=== PATIENT | female | born 1960 | race Caucasian/White ===

== ENCOUNTER 2023-12-25 09:58 | Day surgery (SDC) | payer MEDICARE ==
--- NOTE | 2023-11-12 13:09 | HP ---
HISTORY AND PHYSICAL HISTORY OF PRESENT ILLNESS: Patient has history of polyps in the past, needs followup screening colonoscopy. No bloody stools. No change in bowel movements. No new pain. Family history unknown since she is adopted. PAST MEDICAL HISTORY: Bipolar, anxiety, hypertension, COPD, history of depression, hypothyroidism, type 2 diabetes, history of glaucoma, and history of cataracts in the past. HOME MEDICATIONS: Demerol, sulfamethoxazole, Stiolto Respimat, pirfenidone, oxcarbazepine, mirtazapine, levothyroxine, levocetirizine, enalapril, and azithromycin. ALLERGIES: Depakote and Tegretol. PAST SURGICAL HISTORY: Colonoscopy and tubal in the past. SOCIAL HISTORY: Smoker. Occasional alcohol use. Occasional marijuana. FAMILY HISTORY: Unknown. REVIEW OF SYSTEMS: Twelve systems reviewed. No chest pain or palpitations. Other systems negative or noncontributory as above and per preadmission questionnaire. PHYSICAL EXAMINATION: VITAL SIGNS: Height 5 feet 4 inches. BMI 25.75. GENERAL: No acute distress. HEENT: Sclerae nonicteric. NECK: No JVD. CHEST: Patient does have COPD but equal excursion. Breath sounds symmetric. CARDIOVASCULAR: Regular rate and rhythm. ABDOMEN: Soft. EXTREMITIES: No cyanosis or edema. NEUROLOGIC: Alert and oriented, moving all extremities symmetrically. PSYCHIATRIC: Appropriate mood and affect. SKIN: Dry. RECTAL: Deferred until diagnostic exam. IMPRESSION: History of polyps. Needs followup screening colonoscopy, of which she is a candidate. Shown the risk sheet and explained the procedure in detail including but not limited to bleeding or infection; risk of bowel injury or perforation; risk of missed or nondiagnosis; risk of incomplete exam possibly requiring barium enema, other studies or procedures or referral; risk of anesthesia or sedation; risk of bowel prep but not limited to. Consent obtained. We will proceed with outpatient and followup screening colonoscopy under MAC anesthesia. Patient will need a longer, 3-day prep, as she has chronic constipation. Otherwise, continue medications and medical management for her anxiety, depression, bipolar, hypertension, COPD, diabetes, thyroid disease, and arthritis.
[2023-12-25] MEDS ORDERED: Lactated Ringers 1,000 ML IV ONE (10:17)
[2023-12-25] MEDS: Lactated Ringers 1,000 ML IV SCH (10:20)
--- NOTE | 2023-12-25 10:55 | HP ---
THIS REPORT WAS AMENDED ON 12/26/2023. PROCEDURE DATE: 12/25/2023 HISTORY OF PRESENT ILLNESS: History of polyps in the past. Need for follow-up screening colonoscopy. No bloody stools. No change in bowel habits. PAST MEDICAL HISTORY: Has had bipolar. She has had anxiety, hypertension, chronic obstructive pulmonary disease, arthritis, depression, hypothyroidism, type 2 diabetes. History of glaucoma. History of cataracts in the past. CURRENT MEDICATIONS: Timolol eye drops, sulfamethoxazole-trimethoprim in the past, Stiolto Respimat inhaler, perphenazine, oxcarbazepine, mirtazapine, levothyroxine for some hypothyroidism, levocetirizine, Enalapril, azithromycin in the past. ALLERGIES: DEPAKOTE AND TEGRETOL. PAST SURGICAL HISTORY: She had colonoscopy in the past. FAMILY HISTORY: Unknown as she was adopted. SOCIAL HISTORY: Smoker, does smoke some marijuana at times, occasional alcohol use, denies abuse. REVIEW OF SYSTEMS: 12 systems reviewed. No chest pain or palpitations. Other systems negative or noncontributory other than above and per preadmission questionnaire. PHYSICAL EXAMINATION: Height 5' 4", BMI 25.75. GENERAL: No acute distress. HEENT: Sclerae nonicteric. NECK: No JVD. CHEST: Equal excursion. Nonlabored breathing. CVS: Regular rate and rhythm. ABDOMEN: Soft. EXTREMITIES: No cyanosis or edema. NEURO: Alert and oriented. Moving extremities symmetrically. PSYCH: Appropriate mood and affect. SKIN: Dry. RECTAL: Deferred until time of endoscopy exam. IMPRESSION: HISTORY OF POLYPS, IN NEED OF FOLLOW-UP SCREENING COLONOSCOPY. FEEL SHE IS A CANDIDATE. Risks and benefits explained in detail, but not limited to bleeding; infection; risk of bowel injury or perforation; risk of missed or nondiagnosis or incomplete exam. Will proceed with outpatient colonoscopy under monitored anesthesia care. Otherwise, continue medication for anxiety, bipolar, depression, hypertension, chronic obstructive pulmonary disease, diabetes, thyroid, and arthritis.
[2023-12-25 11:13] LABS: ANION GAP 6.5 MEQ/L (5-15); Calcium 9.7 mg/dL (8.4-10.2); Creatinine 1 0.93 mg/dL (0.52-1.04); EST GLOMERULAR FILTRATION RATE 68.2 ML/MIN; Potassium 3.8 mmol/L (3.5-5.1)
[2023-12-25] MEDS ORDERED: DIPRIVAN 200 MG/20 ML IV ONE ×2 (12:47→13:04)
[2023-12-25] MEDS ORDERED: Versed 2 MG/2 ML Injection ONE (12:47)
[2023-12-25 13:18] VITALS: TEMP 97.5; O2SAT 100
[2023-12-25 13:21] VITALS: RESP 16
[2023-12-25 13:31] VITALS: BP 165/81; PULSE 67
--- NOTE | 2023-12-26 07:43 | OP ---
SURGERY DATE/TIME: 12/25/2023 [id number] PREOPERATIVE DIAGNOSIS: History of polyps, need for screening colonoscopy. POSTOPERATIVE DIAGNOSES: 1) Polyps, diverticulosis. 2) ASA class 3. 3) Withdrawal time approximately 11 minutes. 4) Fair bowel prep. PROCEDURES: 1) Colonoscopy to cecum; hot biopsy polypectomy, cecal polyp, ascending colon polyp, and rectal polyps x3. 2) Hot snare polypectomy, transverse colon polyp. 3) Hot snare polypectomy, sigmoid colon polyps x2. SURGEON: Joe López MD ANESTHESIA: MAC. ESTIMATED BLOOD LOSS: Minimal. INDICATIONS: As above. Consent was obtained. ASA class 3. DESCRIPTION OF PROCEDURE AND FINDINGS: Patient was taken to the operating room. MAC anesthesia induced after official time-out for planned procedure. Digital rectal exam did not reveal any rectal masses. Videocolonoscope was inserted and passed up through the tortuous sigmoid, descending, transverse, ascending colon, and around to the cecum. Appendiceal orifice and valve were well visualized. Scope was carefully withdrawn over the next 11 minutes. Small polyps in the ascending colon and cecum were removed with hot biopsy polypectomy. Polyps in the transverse colon was removed with hot snare polypectomy. Two polyps in the sigmoid colon were removed with a hot snare polypectomy x2 and 3 small early polyps versus hyperplastic lesions in the rectum removed with hot biopsy polypectomy. Good hemostasis was noted. Patient had some diverticulosis. She did also have cecal and ascending colon telangiectasias. No active bleeding. The patient tolerated the procedure well.
== END 2023-12-25 13:45 | disposition home or self-care (01) ==
LOC: SDC 09:58
PROVIDERS: ATTEND Surgery
DX: Z12.11 Encounter for screening for malignant neoplasm of colon (principal); Z09 Encounter for follow-up examination after completed treatment for conditions other than malignant neoplasm; Z86.010 Personal history of colon polyps; E11.9 Type 2 diabetes mellitus without complications; K57.30 Diverticulosis of large intestine without perforation or abscess without bleeding; D12.7 Benign neoplasm of rectosigmoid junction; D12.5 Benign neoplasm of sigmoid colon; D12.3 Benign neoplasm of transverse colon
CPT/HCPCS: 36415; 80048; 82947; 93005; J2250; J2704